=== PATIENT | male | born 1970 | race Caucasian/White ===

== ENCOUNTER → 2018-07-02 | Outpatient (CLI) | payer OTHER, BC ==
[~2018-07-02] MED LIST: SYNTHROID0.1 MG/TAB PO; ULTRAM 50MG TAB50 MG PO
== END ==
LOC: COL.RAD 14:40
DX: Z01.818 Encounter for other preprocedural examination (principal); M17.11 Unilateral primary osteoarthritis, right knee; Z98.890 Other specified postprocedural states

== ENCOUNTER → 2019-02-05 | Outpatient (CLI) | payer OTHER, BC | LOC: COL.RAD 13:15 → COL.LAB 13:15 | DX: Z13.6 Encounter for screening for cardiovascular disorders (principal); S80.11XA Contusion of right lower leg, initial encounter ==

== ENCOUNTER → 2019-09-09 | Outpatient (CLI) | payer OTHER, BC ==
[2019-09-09 11:24] LABS: HEMATOCRIT 45.5 % (42.0-52.0); MEAN CELL VOLUME 89 fl (80.0-100.0); MEAN CORPUSCULAR HEMOGLOBIN 29 pg (27.0-31.0); MEAN CORPUSCULAR HGB CONC 33 g/dl (33.0-37.0); MEAN PLATELET VOLUME 8.9 fl (7.4-10.4); PLATELET COUNT 286 K/mm3 (130-400); RED BLOOD COUNT 5.13 M/mm3 (4.20-5.60); REDCELL DISTRIBUTION WIDTH-CV 13.9 % (11.5-14.5)
[2019-09-09 11:58] LABS: EOSINOPHIL 4 % (0-4); HYPOCHROMIA 1+; LYMPHOCYTE 22 % (20.0-51.0); NEUTROPHILS 65 % (42.0-75.2); PLATELET ESTIMATE NORMAL (NORMAL)
[2019-09-09 11:59] LABS: ERYTHROCYTE SEDIMENTATION RATE 7 mm/hr (0-15)
== END ==
LOC: COL.LAB 10:59
PROVIDERS: Orthopaedic Surgery
DX: M25.561 Pain in right knee (principal); Z96.651 Presence of right artificial knee joint

== ENCOUNTER 2021-02-23 08:52 | Outpatient (CLI) | payer BC ==
[~2021-02-23] VITALS: Ht 190.5 cm; Wt 145.0 kg
[2021-02-23 08:30] VITALS: BP 122/80; PULSE 93; TEMP 98.3
[2021-02-23 08:45] VITALS: BP 109/90; PULSE 96
[2021-02-23 09:00] VITALS: BP 118/88; PULSE 95
[2021-02-23] MEDS ORDERED: ROBAXIN 50500 MG/TAB PO (09:00)
[2021-02-23] MEDS ORDERED: HYZAAR 25 MG-101 TAB PO (09:05)
[2021-02-23] MEDS ORDERED: ADIPEX-P37.5 MG PO (09:06)
[2021-02-23] MEDS ORDERED: SYNTHROID0.2 MG/TAB PO (09:06)
[2021-02-23] MEDS ORDERED: GLUCOPHAGE1000 MG PO (09:07)
[2021-02-23] MEDS ORDERED: XYOSTED100 MG/0.5 SQ (09:07)
[2021-02-23] MEDS ORDERED: LIPITOR 40MG TA40 MG PO (09:08)
[2021-02-23] MEDS ORDERED: SYNTHROID0.05 MG/TA PO (09:08)
[2021-02-23 09:15] VITALS: BP 132/84; PULSE 95
[2021-02-23 09:30] VITALS: BP 132/84; PULSE 92
[2021-02-23 10:00] VITALS: BP 108/82; PULSE 90
== END 2021-02-23 15:51 ==
LOC: EUO 08:52
DX: U07.1 COVID-19 (principal); E11.9 Type 2 diabetes mellitus without complications; I51.9 Heart disease, unspecified
CPT/HCPCS: M0245

== ENCOUNTER 2023-05-18 18:50 | Inpatient (IN) | payer OTHER ==
[~2023-05-18] VITALS: Ht 188 cm; Wt 141.1 kg
[2023-05-18] VITALS (127 sets, daily range): BP systolic 154; BP diastolic 106; PULSE 97; TEMP 98.2; O2SAT 92–100
[~2023-05-18 18:50] MED LIST changes: +ADIPEX-P37.5 MG PO; +GLUCOPHAGE1000 MG PO; +HYZAAR 25 MG-101 TAB PO; +LIPITOR 40MG TA40 MG PO; +ROBAXIN 50500 MG/TAB PO; +SYNTHROID0.05 MG/TA PO; +SYNTHROID0.2 MG/TAB PO; +XYOSTED100 MG/0.5 SQ
[2023-05-18] MEDS ORDERED: Amiodarone 450 MG in D5W Excel 250 ML IV SCH ×2 (19:18→19:27)
[2023-05-18 19:25] LABS: BASO # 0.1 K/mm3 (0.0-0.2); BASO % 1.2 % (0.0-2.0); GRAN # 4.7 K/mm3 (1.4-6.5); GRAN % 52.7 % (42.2-75.2); HEMOGLOBIN 17.4 g/dl (13.5-18.0); LYMPH # 3.2 K/mm3 (1.2-3.4); LYMPH % 35.4 % (20.0-51.0); MEAN CELL VOLUME 92 fl (80.0-100.0); MEAN CORPUSCULAR HEMOGLOBIN 30 pg (27-31); MEAN CORPUSCULAR HGB CONC 33 g/dl (33.0-37.0); MEAN PLATELET VOLUME 8.9 fl (7.4-10.4); MONO # 0.8 K/mm3 (0.1-0.6); MONO % 9.4 % (1.7-9.3); PLATELET COUNT 329 K/mm3 (130-400); RED BLOOD COUNT 5.83 M/mm3 (4.20-5.60); REDCELL DISTRIBUTION WIDTH-CV 13.6 % (11.5-14.5)
[2023-05-18 19:26] LABS: HEMATOCRIT 53.4 % (42.0-52.0)
[2023-05-18 19:43] LABS: BILIRUBIN,TOTAL 0.6 mg/dL (0.2-1.2); CALCIUM 9.4 mg/dL (8.4-10.2); CREATININE, serum 1.51 mg/dL (0.72-1.25); POTASSIUM 3.9 mmol/L (3.5-4.5)
[2023-05-18 19:51] LABS: TROPONIN-I 0.022 ng/mL (0.00-0.033)
[2023-05-18] MEDS ORDERED: Heparin 5,000 UNITS/ML 1 ML VIAL IV PRN (20:30)
[2023-05-18] MEDS ORDERED: LR 1,000 ML IV SCH (20:30)
[2023-05-18] MEDS ORDERED: Heparin/D5W 250 ML IV SCH (20:30)
[2023-05-18] MEDS ORDERED: Acetaminophen 325 MG TAB PO PRN (20:30)
[2023-05-18] MEDS ORDERED: Polyethylene Glycol 3350 17 GM PDS PO PRN (20:30)
[2023-05-18] MEDS ORDERED: Melatonin 3 MG TAB PO PRN (20:30)
[2023-05-18] MEDS ORDERED: Ondansetron 4 MG/2 ML VIAL IV PRN (20:30)
[2023-05-18] MEDS ORDERED: Morphine 4 MG/ML VIAL IV PRN (20:30)
[2023-05-18] MEDS ORDERED: Heparin 5,000 UNITS/ML 1 ML VIAL IV ONE (20:30)
[2023-05-18 21:00] LABS: PROTHROMBIN TIME 11.2 SECONDS (9.7-12.8)
[2023-05-18 21:03] LABS: PARTIAL THROMBOPLASTIN TIME 31.6 SECONDS (26.0-37.0)
[2023-05-18] MEDS ORDERED: MOUNJARO5 MG/0.5 M SQ (21:06)
[2023-05-18] MEDS ORDERED: Atorvastatin 40 MG TAB PO SCH (21:52)
[2023-05-18] MEDS ORDERED: Insulin Aspart (NovoLOG) SQ SCH (21:55)
--- NOTE | 2023-05-18 22:00 | NUR ---
PT ARRIVED VIA A STRETCHER AND WAS ABLE TO MOVE HIMSELF TO THE BED. HE IS ALERT AND ORIENTED AND IN NO DISTRESS. PT IS AT THE BEDSIDE. HE HAS AMIO INFUSING IN A LEFT HAND IV. NO COMPLAINTS AT THIS TIME. PATIENT HAS THE CALLBELL AND ALARMS ARE ACTIVATED.
[2023-05-18] MEDS ORDERED: Dextrose (Glucose) 15 GM (4 x 3.75 GM) Chewable TABLET PACK PO PRN (22:30)
[2023-05-18] MEDS ORDERED: Dextrose 50% Water 25 GM/50 ML SYRINGE IV PRN (22:30)
[2023-05-18] MEDS ORDERED: Glucagon 1 MG VIAL IM PRN (22:30)
[2023-05-19] VITALS (1124 sets, daily range): BP systolic 113–149; BP diastolic 71–100; PULSE 73–93; TEMP 97.7–98.6; O2SAT 74–100
[2023-05-19] MEDS ORDERED: Amiodarone 450 MG in D5W Excel 250 ML IV SCH (01:27)
[2023-05-19 06:09] LABS: ALBUMIN 3.3 gm/dL (3.5-5.0); BILIRUBIN,TOTAL 0.8 mg/dL (0.2-1.2); CALCIUM 8.6 mg/dL (8.4-10.2); CREATININE, serum 0.93 mg/dL (0.72-1.25); POTASSIUM 3.8 mmol/L (3.5-4.5); TOTAL PROTEIN 5.7 gm/dL (6.2-8.1)
[2023-05-19 06:19] LABS: BILIRUBIN,DIRECT 0.4 mg/dL (0.0-0.5)
--- NOTE | 2023-05-19 07:00 | NUR ---
Report received from SABRINA Francis; patient currently resting in bed with eyes closed. Patient has amio and heparin running through his peripheral IV; patient is on room air and vital signs are within normal limits.
[2023-05-19 07:57] LABS: CHOLESTEROL RISK RATIO 3.4
[2023-05-19 08:06] LABS: BASO # 0.1 K/mm3 (0.0-0.2); BASO % 0.9 % (0.0-2.0); GRAN # 3.7 K/mm3 (1.4-6.5); GRAN % 55.9 % (42.2-75.2); LYMPH % 30.2 % (20.0-51.0); MEAN CELL VOLUME 88 fl (80.0-100.0); MEAN CORPUSCULAR HEMOGLOBIN 30 pg (27-31); MEAN CORPUSCULAR HGB CONC 34 g/dl (33.0-37.0); MONO # 0.8 K/mm3 (0.1-0.6); MONO % 11.6 % (1.7-9.3); PLATELET COUNT 251 K/mm3 (130-400); RED BLOOD COUNT 4.93 M/mm3 (4.20-5.60); REDCELL DISTRIBUTION WIDTH-CV 13.8 % (11.5-14.5)
[2023-05-19 08:13] LABS: HEMATOCRIT 43.3 % (42.0-52.0); HEMOGLOBIN 14.8 g/dl (13.5-18.0)
[2023-05-19] MEDS ORDERED: Thiamine 100 MG TAB PO SCH (09:00)
[2023-05-19] MEDS ORDERED: Folic Acid 1 MG TAB PO SCH (09:00)
--- NOTE | 2023-05-19 10:22 | NUR ---
SEE MERGE FOR PROCEDURE DOCUMENTATION
--- NOTE | 2023-05-19 10:46 | NUR ---
buffing line set up worker, PA Student and Dr. Gavin met with patient and his during interdisciplinary clinical rounding. Patient will be going for a heart cath this morning. RUEL discussed discharge planning with patient and his . Patient lives in [place] with his , Amber, P# [phone]. PCP is Johnathon Vivas at [facility] in [place]. Pharmacy is [facility] in [facility]. No issues with affording medications. Patient reports he no longer has BCBS or providers care network, he reports his health insurance is now [employer]. No DPOA-HC and not interested in completing one at this time. No DME and patient reports to be independent with ADLS. Patient is able to transport himself to and from appointments. Patient would like to return home at time of discharge. RUEL notified SABRINA Brandontong carrier, of new insurance. DIscharge plan: Home
[2023-05-19] MEDS ORDERED: 1/2 NS 1,000 ML IV SCH ×2 (10:48→12:15)
[2023-05-19] MEDS ORDERED: Heparin 1,000 UNITS/ML 10 ML Multi-Dose VIAL ICA SCH (10:49)
[2023-05-19] MEDS ORDERED: Midazolam 2 MG/2 ML VIAL IV SCH (10:51)
[2023-05-19] MEDS ORDERED: Verapamil 2.5 MG/ML 2 ML VIAL IV SCH (10:52)
[2023-05-19] MEDS ORDERED: fentaNYL 50 MCG/ML 2 ML VIAL IV SCH (10:53)
[2023-05-19] MEDS ORDERED: Nitroglycerin 100 MCG/ML (Cath Lab) 10 ML VIAL IA SCH (10:55)
[2023-05-19] MEDS ORDERED: Iohexol 300 - 100 ML VIAL INCOR ONE (10:57)
--- NOTE | 2023-05-19 11:22 | NUR ---
REPORT GIVEN TO SABRINA COLVIN AND TRANSPORTED VIA BED TO ICU 2. VITAL SIGNS TAKEN ON ARRIVAL, VSS. PT DENIES CHEST PAIN OR NAUSEA. SPOUSE BROUGHT TO BEDSIDE. RADIAL SITE CDI, CAP REFILL <2. NURSE AT BEDSIDE, TRANSFER OF CARE PROVIDED.
[2023-05-19] MEDS ORDERED: DEPO-TESTOS200 MG/M1 IM (11:26)
--- NOTE | 2023-05-19 11:30 | NUR ---
Report received from SABRINA Nathan; patient went to lab nurse at approx 1000 this morning and returned at approx 1115. Patient had no interventions done in lab nurse; an echo will be done this afternoon to determine the need for a pacemaker/ICD. Patient is alert and oriented; vital signs are within normal limits.
[2023-05-19 13:13] LABS: HEMOGLOBIN 14.5 g/dl (13.5-18.0); MEAN CELL VOLUME 90 fl (80.0-100.0); MEAN CORPUSCULAR HEMOGLOBIN 30 pg (27-31); MEAN CORPUSCULAR HGB CONC 34 g/dl (33.0-37.0); MEAN PLATELET VOLUME 8.7 fl (7.4-10.4); PLATELET COUNT 249 K/mm3 (130-400); RED BLOOD COUNT 4.79 M/mm3 (4.20-5.60); REDCELL DISTRIBUTION WIDTH-CV 13.8 % (11.5-14.5)
[2023-05-19 13:21] LABS: INR 1.1 (0.8-3.0)
[2023-05-19 13:43] LABS: CALCIUM 8.4 mg/dL (8.4-10.2); CREATININE, serum 1.06 mg/dL (0.72-1.25); POTASSIUM 4.5 mmol/L (3.5-4.5)
[2023-05-19] MEDS ORDERED: Metoprolol Tartrate 25 MG TAB PO SCH (21:00)
--- NOTE | 2023-05-19 22:18 | NUR ---
PATIENT IS SITTING UP IN BED WATCHING TV. HIS IS AT THE BEDSIDE. PT USES A URINAL INDEPENDENTLY. AN AMIO DRIP INFUSING IN A 20G LEFT HAND. HE IS ALERT AND ORIENTED WITH COMPLAINTS OF A HEADACHE. PT WITH A TR BAND IN PLACE-ALL AIR IS OUT. THIS HAS BEEN REMOVED AND A CLEAR DRESSING WITH GAUZE PLACED. THE ARM BOARD REMAINS IN PLACE A REMINDER TO USE THE WRIST CAUTIOUSLY. PT HAS HIS CALL LIGHT.
[2023-05-20] VITALS (739 sets, daily range): BP systolic 129–157; BP diastolic 81–105; PULSE 65–72; TEMP 97.8–98.2; O2SAT 84–100
--- NOTE | 2023-05-20 07:00 | NUR ---
Report received from SABRIAN Francis. Reveiwed overnight events and possible plan for the day. Pt is NPO for possible procedure today. Pt is sitting up in bed alert and oriented. Denies pain. Denies feeling any palpiations. Pt denies any needs at this time. Call light within reach. Will continue with POC.
[2023-05-20] MEDS ORDERED: 1/2 NS 1,000 ML IV SCH (12:00)
[2023-05-20] MEDS ORDERED: ceFAZolin 2 G in Water For Injection,Sterile 20 ML IV SCH (12:00)
[2023-05-20] MEDS ORDERED: Insulin Lispro (HumaLOG) SQ SCH (12:00)
--- NOTE | 2023-05-20 12:58 | NUR ---
Pt left floor for defiblitaor placement. Pt will go to room 317 after procedure. Attempted to call report but Alexander was not in at this time. Will try again in a bit.
[2023-05-20] MEDS ORDERED: NS 1,000 ML IV.SOLN. IR SCH (13:58)
[2023-05-20] MEDS ORDERED: Iohexol 350 - 100 ML VIAL IV ONE (14:00)
[2023-05-20] MEDS ORDERED: Midazolam 2 MG/2 ML VIAL IV SCH (14:24)
[2023-05-20] MEDS ORDERED: fentaNYL 50 MCG/ML 2 ML VIAL IV SCH (14:25)
--- NOTE | 2023-05-20 14:46 | NUR ---
Bedside report completed with Alexander BENNETT. Patient assisted to ambulate to the bathroom. Alexander BENNETT denies questions/concerns at this time.
[2023-05-20 16:06] LABS: BASO # 0.1 K/mm3 (0.0-0.2); BASO % 0.6 % (0.0-2.0); EOS % 0.1 % (0.0-4.0); GRAN # 5.8 K/mm3 (1.4-6.5); GRAN % 75.7 % (42.2-75.2); HEMATOCRIT 42.5 % (42.0-52.0); HEMOGLOBIN 14.1 g/dl (13.5-18.0); LYMPH # 1.1 K/mm3 (1.2-3.4); LYMPH % 14.4 % (20.0-51.0); MEAN CELL VOLUME 89 fl (80.0-100.0); MEAN CORPUSCULAR HEMOGLOBIN 30 pg (27-31); MEAN CORPUSCULAR HGB CONC 33 g/dl (33.0-37.0); MEAN PLATELET VOLUME 8.8 fl (7.4-10.4); MONO # 0.6 K/mm3 (0.1-0.6); MONO % 8.3 % (1.7-9.3); PLATELET COUNT 247 K/mm3 (130-400); RED BLOOD COUNT 4.76 M/mm3 (4.20-5.60); REDCELL DISTRIBUTION WIDTH-CV 13.6 % (11.5-14.5)
[2023-05-20 16:15] LABS: INR 1.1 (0.8-3.0); PROTHROMBIN TIME 12.4 SECONDS (9.7-12.8)
--- NOTE | 2023-05-20 16:21 | NUR ---
Time out completed at time charted in merge.
[2023-05-20 16:27] LABS: CALCIUM 8.6 mg/dL (8.4-10.2); CREATININE, serum 0.88 mg/dL (0.72-1.25); POTASSIUM 4.2 mmol/L (3.5-4.5)
--- NOTE | 2023-05-20 17:16 | NUR ---
Amioderone stopped at this time. Per orders.
[2023-05-20] MEDS ORDERED: Cephalexin 500 MG CAP PO SCH (21:00)
--- NOTE | 2023-05-20 21:50 | NUR ---
Patient assessed around 2049. Alert and oriented, and able to make needs known. Reports level 3 tenderness to left chest from ICD placement. Given PRN Acetaminophen as requested. Sling to left arm. Peripheral INT to left AC. Denies SOB and dyspnea. LS CTA. HRR. Telemetry in place. BSAx4. Voices no questions, needs, or concerns at this time. In bed with call light within reach.
[2023-05-21] VITALS (13 sets, daily range): BP systolic 137–165; BP diastolic 76–92; PULSE 70–86; TEMP 97.9–98.7
[2023-05-21 06:40] LABS: BASO # 0.1 K/mm3 (0.0-0.2); BASO % 0.8 % (0.0-2.0); GRAN # 6.7 K/mm3 (1.4-6.5); GRAN % 74.7 % (42.2-75.2); HEMATOCRIT 44.6 % (42.0-52.0); HEMOGLOBIN 14.9 g/dl (13.5-18.0); LYMPH # 1.2 K/mm3 (1.2-3.4); MEAN CELL VOLUME 90 fl (80.0-100.0); MEAN CORPUSCULAR HEMOGLOBIN 30 pg (27-31); MEAN CORPUSCULAR HGB CONC 33 g/dl (33.0-37.0); MEAN PLATELET VOLUME 9.3 fl (7.4-10.4); MONO # 0.9 K/mm3 (0.1-0.6); MONO % 10.5 % (1.7-9.3); PLATELET COUNT 252 K/mm3 (130-400); RED BLOOD COUNT 4.95 M/mm3 (4.20-5.60); REDCELL DISTRIBUTION WIDTH-CV 13.6 % (11.5-14.5)
[2023-05-21 07:06] LABS: CALCIUM 8.7 mg/dL (8.4-10.2); CREATININE, serum 0.85 mg/dL (0.72-1.25); MAGNESIUM 1.9 mg/dL (1.6-2.6); POTASSIUM 4.3 mmol/L (3.5-4.5)
--- NOTE | 2023-05-21 22:39 | NUR ---
Patient assessed around 2124. Alert and oriented, and able to make needs known. Denies having pain and discomfort. Peripheral INT to right AC. Denies SOB and dyspnea. LS CTA. HRR. Telemetry in place. Steristrips to ICD CDI. Has Allevyn to site as well. BSAx4. Aware of plan to test ICD tomorrow, and that he is NPO after midnight. Voices no questions, needs, or concerns at this time. In bed with call light within reach.
[2023-05-22] VITALS (10 sets, daily range): BP systolic 137–157; BP diastolic 76–97; PULSE 66–72; TEMP 97.8–98
--- NOTE | 2023-05-22 06:34 | NUR ---
Patient given PRN Acetaminophen and ice to ICD site as requested for discomfort during the night. Reports it was effective. Has been NPO since midnight except took medications with sips of water. Voices no questions, needs, or concerns at this time. In bed with call light within reach.
[2023-05-22 06:57] LABS: BASO # 0.1 K/mm3 (0.0-0.2); BASO % 0.8 % (0.0-2.0); EOS % 0.1 % (0.0-4.0); GRAN # 5.3 K/mm3 (1.4-6.5); GRAN % 68.8 % (42.2-75.2); HEMATOCRIT 44.6 % (42.0-52.0); HEMOGLOBIN 14.9 g/dl (13.5-18.0); LYMPH # 1.4 K/mm3 (1.2-3.4); LYMPH % 17.8 % (20.0-51.0); MEAN CELL VOLUME 89 fl (80.0-100.0); MEAN CORPUSCULAR HEMOGLOBIN 30 pg (27-31); MEAN CORPUSCULAR HGB CONC 33 g/dl (33.0-37.0); MEAN PLATELET VOLUME 9.3 fl (7.4-10.4); MONO # 0.9 K/mm3 (0.1-0.6); MONO % 11.2 % (1.7-9.3); PLATELET COUNT 254 K/mm3 (130-400); RED BLOOD COUNT 4.99 M/mm3 (4.20-5.60); REDCELL DISTRIBUTION WIDTH-CV 13.7 % (11.5-14.5)
[2023-05-22 07:09] LABS: CALCIUM 8.8 mg/dL (8.4-10.2); CREATININE, serum 0.93 mg/dL (0.72-1.25); POTASSIUM 4.2 mmol/L (3.5-4.5)
[2023-05-22] MEDS ORDERED: CEPHALEXIN500 M1 PO (08:55)
[2023-05-22] MEDS ORDERED: ASPIRIN E.C. 8181 MG PO (08:55)
[2023-05-22] MEDS ORDERED: BETAPACE 120MG120 MG PO (08:55)
[2023-05-22] MEDS ORDERED: THIAMINE 1100 MG/TAB PO (08:57)
[2023-05-22] MEDS ORDERED: FOLIC ACID 11 MG/TA1 PO (08:57)
[2023-05-22] MEDS ORDERED: COMPLETE MULTI1 TAB PO (08:57)
--- NOTE | 2023-05-22 09:00 | NUR ---
PT LAYING IN BED UPON ENTERING. ASSESSMENT DONE, PT NPO AT THIS TIME. CONSENT SIGNED FOR PROCEDURE. LISA, MEAT BONER AND SLICER, AT BEDSIDE. RIGHT AC INT LEAKING, 20G STARTED IN LEFT AC BY SABRINA GONZALEZ. EDEMA NOTED TO INCISION TO LEFT CHEST, DRESSING CLEAN DRY AND INTACT. BELOW LEFT CHEST INCISION SCATTERED ABRASIONS NOTED, THIS IS FROM FOAM TAPE REMOVAL PER PT. PT DENIES NEEDS AT THIS TIME, AT BEDSIDE. LISA, MEAT BONER AND SLICER, AT BEDSIDE UPON THIS NURSE LEAVING.
--- NOTE | 2023-05-22 09:55 | NUR ---
Refer to [facility] report for procedural notes, sedation administered by MD Tavares
--- NOTE | 2023-05-22 10:30 | NUR ---
PT BACK ON THE FLOOR, POST OP VITALS STARTED
--- NOTE | 2023-05-22 12:00 | NUR ---
IV AND TELE REMOVED. PT GIVEN DISCHARGE INSTRUCTIONS AND VERBALIZES UNDERSTANDING. PT ASKING ABOUT DOMINIC ON HIS PHONE THAT NEEDS TO BE SET UP. TENTER FEEDER CALLED AND TOLD THIS NURSE THAT DOMINIC WAS ALREADY SET UP, PT DENIES THIS. TENTER FEEDER NOTIFIED THAT PT DOESNT RECALL THIS AND TELLS THIS NURSE THAT IT CAN BE DOWNLOADED AT FOLLOW UP APPT AND THAT THE PT DOESNT NEED ANYTHING DOWNLOADED AT THIS TIME. PT DRESSED AND EATING LUNCH, NOTIFIED TO CALL WHEN DONE
--- NOTE | 2023-05-22 12:32 | NUR ---
PT ESCORTED BY THIS NURSE TO PERSONAL VEHICLE VIA WHEELCHAIR, BELONGINGS W PT AND . PT DENIES NEEDS AT THIS TIME
== END 2023-05-22 12:34 | disposition home or self-care (01) | DRG 277 ==
LOC: COL.ER 18:50 → ICU 20:23 → MEDICAL 20:23
PROVIDERS: Personal Emergency Response Attendant; Physician Assistant; ADMIT Internal Medicine
PROC: 4A023N7 Measurement of Cardiac Sampling and Pressure, Left Heart, Percutaneous Approach (ICD-10-PCS; 2023-05-19)
PROC: B2111ZZ Fluoroscopy of Multiple Coronary Arteries using Low Osmolar Contrast (ICD-10-PCS; 2023-05-19)
PROC: 0JH608Z Insertion of Defibrillator Generator into Chest Subcutaneous Tissue and Fascia, Open Approach (ICD-10-PCS; principal; 2023-05-20)
PROC: 02H63KZ Insertion of Defibrillator Lead into Right Atrium, Percutaneous Approach (ICD-10-PCS; 2023-05-20)
PROC: 02HK3KZ Insertion of Defibrillator Lead into Right Ventricle, Percutaneous Approach (ICD-10-PCS; 2023-05-20)
PROC: 4B02XTZ Measurement of Cardiac Defibrillator, External Approach (ICD-10-PCS; 2023-05-22)
DX: I47.20 Ventricular tachycardia, unspecified (principal); N17.9 Acute kidney failure, unspecified; Z68.41 Body mass index [BMI] 40.0-44.9, adult; R74.01 Elevation of levels of liver transaminase levels; E11.9 Type 2 diabetes mellitus without complications; E78.5 Hyperlipidemia, unspecified; E66.9 Obesity, unspecified; I10 Essential (primary) hypertension; K70.0 Alcoholic fatty liver; I44.0 Atrioventricular block, first degree; Z96.651 Presence of right artificial knee joint; F10.90 Alcohol use, unspecified, uncomplicated; E03.9 Hypothyroidism, unspecified; I83.90 Asymptomatic varicose veins of unspecified lower extremity; Z79.890 Hormone replacement therapy; Z79.84 Long term (current) use of oral hypoglycemic drugs; Z79.899 Other long term (current) drug therapy; Z87.891 Personal history of nicotine dependence
CPT/HCPCS: C1721; C1769; C1777; C1894; C1898; J0282; J0665-JZ; J0690; J1644; J1650; J1815; J2250; J2704; J3010; J3411; J3475; J7030; J7060; J7120; Q9967